=== PATIENT | male | born 1945 | race Caucasian/White ===

== ENCOUNTER 2023-10-02 21:54 | Inpatient (IN) | payer MEDICARE ==
[~2023-10-02] VITALS: Ht 185.4 cm; Wt 55.3 kg
[2023-10-02] MEDS ORDERED: CLONIDINE HCL 0.1 MG TABLET PO ONE (22:15)
[2023-10-02] MEDS ORDERED: CLONIDINE HCL 0.1 MG TABLET ONE (22:17)
[2023-10-02] MEDS ORDERED: HALOPERIDOL LACTATE 5 MG/1 ML VIAL IM ONE (23:45)
[2023-10-03] MEDS ORDERED: HALOPERIDOL LACTATE 5 MG/1 ML VIAL ONE (00:07)
[2023-10-03] MEDS ORDERED: MELA10TA (00:46)
[2023-10-03] MEDS ORDERED: QUET50TA PO (00:46)
[2023-10-03] MEDS ORDERED: BLOOD SUGAR DIAGNOSTIC 1 EACH STRIP VI ONE (01:30)
[2023-10-03] MEDS ORDERED: MAGNESIUM HYDROXIDE 30 ML LIQUID UDC PO PRN (01:30)
[2023-10-03] MEDS ORDERED: MAG HYDROX/AL HYDROX/SIMETH 30 ML LIQUID UDC PO PRN (01:30)
[2023-10-03] MEDS ORDERED: QUET100T PO (03:33)
[2023-10-03 04:23] VITALS: BP 157/81; TEMP 97.9; O2SAT 99
[2023-10-03 08:10] VITALS: BP 116/81; TEMP 98; O2SAT 98
[2023-10-03] MEDS: LORAZEPAM 0.5 MG TABLET PO PRN ×3 (08:57→18:56)
[2023-10-03] MEDS: DIVALPROEX 125 MG TABLET.DR PO SCH ×2 (14:24→17:35)
[2023-10-03 15:24] VITALS: BP 97/61; TEMP 98; O2SAT 98
[2023-10-03 20:00] VITALS: BP 122/50; TEMP 98; O2SAT 98
[2023-10-04 07:19] LABS: BASOPHILS % (AUTO) 0.5 % (0.0-2.0); EOSINOPHILS # (AUTO) 0.1 K/uL (0.0-0.7); EOSINOPHILS % (AUTO) 0.8 % (0.0-7.0); HEMATOCRIT 48.5 % (36.7-47.1); LYMPHOCYTES # (AUTO) 1.6 K/uL (0.8-4.8); LYMPHOCYTES % (AUTO) 21.8 % (20.5-51.5); MEAN CORPUSCULAR HEMOGLOBIN 29.9 uug (23.8-33.4); MEAN CORPUSCULAR HGB CONC 33 g/dL (32.5-36.3); MEAN CORPUSCULAR VOLUME 90.7 fL (73.0-96.2); MONOCYTES # (AUTO) 0.6 K/uL (0.1-1.30); MONOCYTES % (AUTO) 7.7 % (0.0-11.0); NEUTROPHILS % (AUTO) 69.2 % (38.5-71.5); PLATELET COUNT (AUTO) 180 K/uL (152-348); RED BLOOD CELL COUNT(AUTO) 5.34 MIL/uL (4.06-5.63); RED CELL DISTRIBUTION WIDTH 13.2 % (12.1-16.2); WHITE BLOOD COUNT (AUTO) 7.2 K/uL (3.6-10.2)
[2023-10-04 07:24] LABS: DIFFERENTIAL COMMENT 1
[2023-10-04 07:46] LABS: ALANINE AMINOTRANSFERASE 13 U/L (16-63); ALBUMIN 3.1 g/dL (3.4-5.0); ALKALINE PHOSPHATASE 89 U/L (50-136); ASPARTATE AMINOTRANSFERASE 13 U/L (15-37); BILIRUBIN,TOTAL 0.6 mg/dL (0.2-1.0); CALCIUM 8.9 mg/dL (8.5-10.1); CARBON DIOXIDE 28 mmol/L (21-32); CHLORIDE 106 mmol/L (98-107); GLUCOSE 102 mg/dL (74-106); GLUCOSE FASTING 102 mg/dL (70-115); POTASSIUM 4.2 mmol/L (3.5-5.1); SODIUM SERUM 142 mmol/L (136-145); TOTAL PROTEIN, SERUM 5.7 g/dL (6.4-8.2); UREA NITROGEN, BLOOD 19 mg/dL (7-18)
[2023-10-04 08:16] VITALS: BP 129/64; TEMP 97.9; O2SAT 99
[2023-10-04] MEDS: GLUCERNA SHAKE 237 ML CAN PO SCH (08:47)
[2023-10-04] MEDS: DIVALPROEX 125 MG TABLET.DR PO SCH ×2 (08:47→16:04)
[2023-10-04] MEDS: LORAZEPAM 0.5 MG TABLET PO PRN (15:08)
[2023-10-04] MEDS: ACETAMINOPHEN 325 MG TABLET PO PRN (15:52)
[2023-10-04 17:30] VITALS: BP 153/74; TEMP 97.9; O2SAT 97
[2023-10-04 20:00] VITALS: BP 109/65; TEMP 98; O2SAT 98
[2023-10-04] MEDS: TEMAZEPAM 7.5 MG CAPSULE PO PRN (21:23)
[2023-10-05 07:52] VITALS: BP 96/58; TEMP 98; O2SAT 98
[2023-10-05] MEDS: DIVALPROEX 125 MG TABLET.DR PO SCH ×2 (08:29→16:17)
[2023-10-05] MEDS: GLUCERNA SHAKE 237 ML CAN PO SCH (08:30)
[2023-10-05] MEDS: LORAZEPAM 0.5 MG TABLET PO PRN ×3 (12:27→20:34)
[2023-10-05 15:23] VITALS: BP 136/80; TEMP 98; O2SAT 99
[2023-10-05 20:00] VITALS: BP 123/77; TEMP 98.7; O2SAT 99
[2023-10-05] MEDS: TEMAZEPAM 7.5 MG CAPSULE PO PRN (23:18)
[2023-10-06] MEDS: LORAZEPAM 0.5 MG TABLET PO PRN ×4 (05:23→21:10)
[2023-10-06 07:46] VITALS: BP 114/66; TEMP 97.8; O2SAT 99
[2023-10-06] MEDS: DIVALPROEX 125 MG TABLET.DR PO SCH ×3 (08:43→16:51)
[2023-10-06] MEDS: GLUCERNA SHAKE 237 ML CAN PO SCH ×3 (08:43→16:52)
[2023-10-06] MEDS: ACETAMINOPHEN 325 MG TABLET PO PRN (16:51)
[2023-10-06 17:47] VITALS: BP 118/64; TEMP 98; O2SAT 98
[2023-10-06 20:05] VITALS: BP 162/93; TEMP 98.5; O2SAT 98
[2023-10-07 08:02] VITALS: BP 122/70; TEMP 97.6; O2SAT 98
[2023-10-07 08:23] VITALS: BP 122/70; TEMP 97.6; O2SAT 100
[2023-10-07] MEDS: DIVALPROEX 125 MG TABLET.DR PO SCH ×3 (08:25→17:42)
[2023-10-07] MEDS: LORAZEPAM 0.5 MG TABLET PO PRN ×2 (08:26→12:25)
[2023-10-07] MEDS: GLUCERNA SHAKE 237 ML CAN PO SCH ×2 (08:33→17:42)
[2023-10-07] MEDS: risperiDONE 0.25 MG TABLET PO SCH ×2 (11:05→17:42)
[2023-10-07 18:15] VITALS: BP 141/79; TEMP 97.7; O2SAT 99
[2023-10-07] MEDS: risperiDONE 0.5 MG TABLET PO SCH (20:27)
[2023-10-07] MEDS: ACETAMINOPHEN 325 MG TABLET PO PRN (20:29)
[2023-10-07] MEDS: TEMAZEPAM 7.5 MG CAPSULE PO PRN (23:16)
[2023-10-08] MEDS: DIVALPROEX 125 MG TABLET.DR PO SCH (09:00)
[2023-10-08 09:46] VITALS: BP 139/69; TEMP 97.2; O2SAT 97
[2023-10-08] MEDS: risperiDONE 0.25 MG TABLET PO SCH ×2 (09:46→17:00)
[2023-10-08] MEDS: GLUCERNA SHAKE 237 ML CAN PO SCH ×2 (09:47→17:00)
[2023-10-08 11:38] LABS: BASOPHILS # (AUTO) 0.3 K/UL (0.0-0.2); BASOPHILS % (AUTO) 3.7 % (0.0-2.0); EOSINOPHILS # (AUTO) 0.1 K/uL (0.0-0.7); EOSINOPHILS % (AUTO) 0.7 % (0.0-7.0); HEMATOCRIT 53.5 % (36.7-47.1); HEMOGLOBIN 17.8 g/dL (12.5-16.3); LYMPHOCYTES # (AUTO) 1.1 K/uL (0.8-4.8); LYMPHOCYTES % (AUTO) 16.1 % (20.5-51.5); MEAN CORPUSCULAR HEMOGLOBIN 30.2 uug (23.8-33.4); MEAN CORPUSCULAR HGB CONC 33 g/dL (32.5-36.3); MEAN CORPUSCULAR VOLUME 90.4 fL (73.0-96.2); MONOCYTES # (AUTO) 0.5 K/uL (0.1-1.30); MONOCYTES % (AUTO) 6.8 % (0.0-11.0); NEUTROPHILS % (AUTO) 72.7 % (38.5-71.5); PLATELET COUNT (AUTO) 221 K/uL (152-348); RED BLOOD CELL COUNT(AUTO) 5.91 MIL/uL (4.06-5.63); WHITE BLOOD COUNT (AUTO) 6.9 K/uL (3.6-10.2)
[2023-10-08 11:50] LABS: DIFFERENTIAL COMMENT 1
[2023-10-08 13:03] LABS: ALBUMIN 3.8 g/dL (3.4-5.0); ASPARTATE AMINOTRANSFERASE 26 U/L (15-37); BILIRUBIN,TOTAL 1.2 mg/dL (0.2-1.0); CARBON DIOXIDE 25 mmol/L (21-32); CHLORIDE 104 mmol/L (98-107); CREATININE 0.8 mg/dL (0.6-1.3); GLUCOSE 111 mg/dL (74-106); POTASSIUM 5.3 mmol/L (3.5-5.1); SODIUM SERUM 140 mmol/L (136-145); TOTAL PROTEIN, SERUM 7.1 g/dL (6.4-8.2); UREA NITROGEN, BLOOD 22 mg/dL (7-18)
[2023-10-08 13:21] LABS: ALANINE AMINOTRANSFERASE 22 U/L (16-63); ALKALINE PHOSPHATASE 136 U/L (50-136)
[2023-10-08] MEDS: DIVALPROEX SPRINKLE 125 MG CAP.SPRINK PO SCH ×2 (13:58→17:00)
[2023-10-08 16:00] VITALS: BP 147/82; TEMP 97.6; O2SAT 97
[2023-10-08 20:09] VITALS: BP 150/98; TEMP 98.1; O2SAT 98
[2023-10-08] MEDS: TEMAZEPAM 7.5 MG CAPSULE PO PRN (20:59)
[2023-10-08] MEDS: risperiDONE 0.5 MG TABLET PO SCH (20:59)
[2023-10-09 08:03] VITALS: BP 134/69; TEMP 98.2; O2SAT 98
[2023-10-09] MEDS: DIVALPROEX SPRINKLE 125 MG CAP.SPRINK PO SCH ×3 (08:53→16:56)
[2023-10-09] MEDS: risperiDONE 0.25 MG TABLET PO SCH ×2 (08:54→16:57)
[2023-10-09] MEDS: GLUCERNA SHAKE 237 ML CAN PO SCH ×2 (08:59→17:00)
[2023-10-09 15:12] VITALS: BP 149/64; TEMP 98.2; O2SAT 97
[2023-10-09 19:56] VITALS: BP 141/86; TEMP 98.1; O2SAT 99
[2023-10-09] MEDS: risperiDONE 0.5 MG TABLET PO SCH (20:13)
[2023-10-09] MEDS: TEMAZEPAM 7.5 MG CAPSULE PO SCH (20:14)
[2023-10-10 07:52] VITALS: BP 95/59; TEMP 98; O2SAT 96
[2023-10-10 08:37] LABS: BASOPHILS % (AUTO) 0.6 % (0.0-2.0); EOSINOPHILS % (AUTO) 0.6 % (0.0-7.0); HEMATOCRIT 52.4 % (36.7-47.1); HEMOGLOBIN 17.4 g/dL (12.5-16.3); LYMPHOCYTES # (AUTO) 1.6 K/uL (0.8-4.8); LYMPHOCYTES % (AUTO) 19.6 % (20.5-51.5); MEAN CORPUSCULAR HEMOGLOBIN 30.2 uug (23.8-33.4); MEAN CORPUSCULAR HGB CONC 33 g/dL (32.5-36.3); MONOCYTES # (AUTO) 0.7 K/uL (0.1-1.30); MONOCYTES % (AUTO) 8.3 % (0.0-11.0); NEUTROPHILS # (AUTO) 5.8 K/uL (1.8-8.9); NEUTROPHILS % (AUTO) 70.9 % (38.5-71.5); PLATELET COUNT (AUTO) 197 K/uL (152-348); RED BLOOD CELL COUNT(AUTO) 5.76 MIL/uL (4.06-5.63); RED CELL DISTRIBUTION WIDTH 13.3 % (12.1-16.2); WHITE BLOOD COUNT (AUTO) 8.2 K/uL (3.6-10.2)
[2023-10-10] MEDS: GLUCERNA SHAKE 237 ML CAN PO SCH ×2 (09:00→17:00)
[2023-10-10] MEDS: DIVALPROEX SPRINKLE 125 MG CAP.SPRINK PO SCH ×3 (09:00→17:00)
[2023-10-10] MEDS: risperiDONE 0.25 MG TABLET PO SCH (09:00)
[2023-10-10 09:21] LABS: ALANINE AMINOTRANSFERASE 26 U/L (16-63); ALBUMIN 3.6 g/dL (3.4-5.0); ALKALINE PHOSPHATASE 121 U/L (50-136); ASPARTATE AMINOTRANSFERASE 32 U/L (15-37); BILIRUBIN,TOTAL 0.9 mg/dL (0.2-1.0); CALCIUM 9.9 mg/dL (8.5-10.1); CARBON DIOXIDE 28 mmol/L (21-32); CHLORIDE 106 mmol/L (98-107); CREATININE 1.1 mg/dL (0.6-1.3); GLUCOSE 104 mg/dL (74-106); POTASSIUM 4.5 mmol/L (3.5-5.1); SODIUM SERUM 144 mmol/L (136-145); TOTAL PROTEIN, SERUM 6.3 g/dL (6.4-8.2); UREA NITROGEN, BLOOD 26 mg/dL (7-18)
[2023-10-10 09:31] LABS: VALPROIC ACID 14 ug/mL (50-100)
[2023-10-10 15:22] VITALS: BP 139/94; TEMP 98; O2SAT 96
[2023-10-10] MEDS: risperiDONE-M 0.5 MG TAB.RAPDIS PO SCH ×2 (17:00→21:30)
[2023-10-10] MEDS ORDERED: LORAZEPAM 2 MG/1 ML VIAL IV PRN (19:00)
[2023-10-10] MEDS ORDERED: TEMAZEPAM 15 MG CAPSULE PO PRN (19:00)
[2023-10-10] MEDS ORDERED: IV D5 1/2 NS 1000 ML 1,000 ML IV PRN (19:00)
[2023-10-10] MEDS ORDERED: MAGNESIUM HYDROXIDE 30 ML LIQUID UDC PO PRN (19:00)
[2023-10-10] MEDS ORDERED: REMEDY ESSENTIAL ZINC PASTE 113 GM TP PRN (19:00)
[2023-10-10] MEDS ORDERED: ONDANSETRON 4 MG/2 ML VIAL IV PRN (19:15)
[2023-10-10] MEDS: TEMAZEPAM 7.5 MG CAPSULE PO SCH (21:31)
[2023-10-10] MEDS ORDERED: ACET325T53 PO (23:50)
[2023-10-11] MEDS ORDERED: [UNRECOGNIZED DRUG - CODE] PO (05:25)
[2023-10-11] MEDS ORDERED: DIVA125C2 PO (05:25)
[2023-10-11] MEDS ORDERED: LORA0.5T48 PO (05:25)
== END 2023-10-10 22:19 | disposition short-term general hospital (02) | DRG 885 ==
LOC: ER 21:57 → GPS 23:58
PROVIDERS: ADMIT Psychiatry & Neurology Psychosomatic Medicine; ATTEND Nurse Practitioner Acute Care
DX: F29 Unspecified psychosis not due to a substance or known physiological condition (principal); F03.911 Unspecified dementia, unspecified severity, with agitation; G93.49 Other encephalopathy; Z68.1 Body mass index [BMI] 19.9 or less, adult; E44.0 Moderate protein-calorie malnutrition; R64 Cachexia; I10 Essential (primary) hypertension; I69.298 Other sequelae of other nontraumatic intracranial hemorrhage; F10.11 Alcohol abuse, in remission; E88.09 Other disorders of plasma-protein metabolism, not elsewhere classified; E87.5 Hyperkalemia; E86.0 Dehydration; F12.11 Cannabis abuse, in remission; Z91.81 History of falling
CPT/HCPCS: 36415; 80164; 85025; A6209; J1630

== ENCOUNTER 2023-10-10 22:51 | Inpatient (IN) | payer MEDICARE ==
[~2023-10-10] VITALS: Ht 182.9 cm; Wt 54.0 kg
[2023-10-10 23:04] VITALS: BP 139/85; TEMP 98.1; O2SAT 99
[2023-10-10] MEDS ORDERED: TEMAZEPAM 15 MG CAPSULE PO PRN (23:15)
[2023-10-10] MEDS ORDERED: IV D5 1/2 NS 1000 ML 1,000 ML IV SCH (23:15)
[2023-10-10] MEDS ORDERED: MAG HYDROX/AL HYDROX/SIMETH 30 ML LIQUID UDC PO PRN (23:15)
[2023-10-10] MEDS ORDERED: ONDANSETRON 4 MG/2 ML VIAL IV PRN (23:15)
[2023-10-10] MEDS ORDERED: ACET325T53 PO (23:50)
[2023-10-11] MEDS ORDERED: IV D5 1/2 NS 1000 ML 1,000 ML IV SCH (00:15)
[2023-10-11 04:55] VITALS: BP 131/79; TEMP 98; O2SAT 99
[2023-10-11] MEDS ORDERED: DIVA125C2 PO (05:25)
[2023-10-11] MEDS ORDERED: LORA0.5T48 PO (05:25)
[2023-10-11] MEDS ORDERED: [UNRECOGNIZED DRUG - CODE] PO (05:25)
[2023-10-11 06:40] LABS: CALCIUM 9.1 mg/dL (8.5-10.1); CARBON DIOXIDE 26 mmol/L (21-32); CHLORIDE 106 mmol/L (98-107); CREATININE 0.7 mg/dL (0.6-1.3); GLUCOSE 107 mg/dL (74-106); PHOSPHOROUS 3.1 mg/dL (2.5-4.9); POTASSIUM 3.6 mmol/L (3.5-5.1); SODIUM SERUM 140 mmol/L (136-145); UREA NITROGEN, BLOOD 23 mg/dL (7-18)
[2023-10-11] MEDS: IV D5 1/2 NS 1000 ML 1,000 ML IV PRN ×2 (06:45→09:39)
[2023-10-11 06:49] LABS: THYROID STIMULATING HORMONE 1.708 mIU/mL (0.358-3.740)
[2023-10-11] MEDS: REMEDY ESSENTIAL ZINC PASTE 113 GM TOP SCH ×2 (09:40→20:25)
[2023-10-11] MEDS ORDERED: LORAZEPAM 0.5 MG TABLET PO PRN (11:00)
[2023-10-11] MEDS ORDERED: ACETAMINOPHEN 325 MG TABLET-SA PATIENTS-PAIN ONLY PO PRN (11:00)
[2023-10-11 11:06] VITALS: BP 133/66; TEMP 97.8; O2SAT 98
[2023-10-11] MEDS ORDERED: ACETAMINOPHEN 325 MG TABLET PO PRN (11:15)
[2023-10-11 12:00] VITALS: BP 133/66; TEMP 97.8; O2SAT 98
[2023-10-11] MEDS: DIVALPROEX SPRINKLE 125 MG CAP.SPRINK PO SCH ×2 (13:23→16:24)
[2023-10-11 15:06] VITALS: BP 163/83; TEMP 98.4; O2SAT 99
[2023-10-11] MEDS: risperiDONE-M 0.5 MG TAB.RAPDIS PO SCH ×2 (16:24→20:24)
[2023-10-11 20:31] VITALS: BP 163/90; TEMP 97.8; O2SAT 99
[2023-10-12] MEDS: LORAZEPAM 2 MG/1 ML VIAL IV PRN ×2 (03:59→20:29)
[2023-10-12] MEDS: IV D5 1/2 NS 1000 ML 1,000 ML IV PRN ×2 (04:07→17:48)
[2023-10-12 04:46] VITALS: BP 138/82; TEMP 98; O2SAT 100
[2023-10-12 07:06] LABS: BASOPHILS % (AUTO) 0.4 % (0.0-2.0); EOSINOPHILS # (AUTO) 0.1 K/uL (0.0-0.7); EOSINOPHILS % (AUTO) 1.4 % (0.0-7.0); HEMATOCRIT 48.7 % (36.7-47.1); HEMOGLOBIN 16.3 g/dL (12.5-16.3); LYMPHOCYTES # (AUTO) 1.3 K/uL (0.8-4.8); LYMPHOCYTES % (AUTO) 23.6 % (20.5-51.5); MEAN CORPUSCULAR HGB CONC 33 g/dL (32.5-36.3); MEAN CORPUSCULAR VOLUME 89.9 fL (73.0-96.2); MONOCYTES # (AUTO) 0.6 K/uL (0.1-1.30); MONOCYTES % (AUTO) 10.5 % (0.0-11.0); NEUTROPHILS # (AUTO) 3.7 K/uL (1.8-8.9); NEUTROPHILS % (AUTO) 64.1 % (38.5-71.5); PLATELET COUNT (AUTO) 165 K/uL (152-348); RED BLOOD CELL COUNT(AUTO) 5.42 MIL/uL (4.06-5.63); RED CELL DISTRIBUTION WIDTH 12.8 % (12.1-16.2); WHITE BLOOD COUNT (AUTO) 5.7 K/uL (3.6-10.2)
[2023-10-12 07:12] LABS: DIFFERENTIAL COMMENT 1
[2023-10-12 07:31] LABS: CARBON DIOXIDE 27 mmol/L (21-32); CHLORIDE 108 mmol/L (98-107); POTASSIUM 3.4 mmol/L (3.5-5.1); SODIUM SERUM 144 mmol/L (136-145)
[2023-10-12 08:23] LABS: ALANINE AMINOTRANSFERASE 25 U/L (16-63); ALBUMIN 3.1 g/dL (3.4-5.0); ALKALINE PHOSPHATASE 115 U/L (50-136); ASPARTATE AMINOTRANSFERASE 17 U/L (15-37); BILIRUBIN,TOTAL 0.7 mg/dL (0.2-1.0); CALCIUM 8.8 mg/dL (8.5-10.1); CREATININE 0.8 mg/dL (0.6-1.3); GLUCOSE 100 mg/dL (74-106); MAGNESIUM 2.2 mg/dL (1.8-2.4); PHOSPHOROUS 2.8 mg/dL (2.5-4.9); TOTAL PROTEIN, SERUM 5.5 g/dL (6.4-8.2); UREA NITROGEN, BLOOD 10 mg/dL (7-18)
[2023-10-12] MEDS: risperiDONE-M 0.5 MG TAB.RAPDIS PO SCH ×4 (08:47→20:29)
[2023-10-12] MEDS: DIVALPROEX SPRINKLE 125 MG CAP.SPRINK PO SCH ×4 (08:47→17:01)
[2023-10-12] MEDS: REMEDY ESSENTIAL ZINC PASTE 113 GM TOP SCH ×2 (08:47→20:31)
[2023-10-12 11:02] VITALS: BP 137/77; TEMP 97.6; O2SAT 97
[2023-10-12] MEDS: POTASSIUM CHLORIDE 10 MEQ TAB.PRT.SR PO SCH ×2 (14:57→17:01)
[2023-10-12 16:00] VITALS: BP 147/100; TEMP 97.6; O2SAT 97
[2023-10-12 20:50] VITALS: BP 138/88; TEMP 97.5; O2SAT 97
[2023-10-13 05:00] VITALS: BP 144/89; TEMP 97.8; O2SAT 98
[2023-10-13] MEDS: IV D5 1/2 NS 1000 ML 1,000 ML IV PRN ×2 (06:37→20:09)
[2023-10-13 06:57] LABS: BASOPHILS % (AUTO) 0.5 % (0.0-2.0); EOSINOPHILS % (AUTO) 0.4 % (0.0-7.0); HEMOGLOBIN 17.8 g/dL (12.5-16.3); LYMPHOCYTES # (AUTO) 1.4 K/uL (0.8-4.8); LYMPHOCYTES % (AUTO) 16.8 % (20.5-51.5); MEAN CORPUSCULAR HEMOGLOBIN 30.1 uug (23.8-33.4); MEAN CORPUSCULAR HGB CONC 34 g/dL (32.5-36.3); MEAN CORPUSCULAR VOLUME 89.5 fL (73.0-96.2); MONOCYTES # (AUTO) 0.7 K/uL (0.1-1.30); MONOCYTES % (AUTO) 8.8 % (0.0-11.0); NEUTROPHILS # (AUTO) 6.2 K/uL (1.8-8.9); NEUTROPHILS % (AUTO) 73.5 % (38.5-71.5); PLATELET COUNT (AUTO) 178 K/uL (152-348); RED BLOOD CELL COUNT(AUTO) 5.92 MIL/uL (4.06-5.63); RED CELL DISTRIBUTION WIDTH 12.9 % (12.1-16.2); WHITE BLOOD COUNT (AUTO) 8.5 K/uL (3.6-10.2)
[2023-10-13 07:01] LABS: DIFFERENTIAL COMMENT 1
[2023-10-13 07:13] LABS: ALANINE AMINOTRANSFERASE 30 U/L (16-63); ALBUMIN 3.5 g/dL (3.4-5.0); ALKALINE PHOSPHATASE 134 U/L (50-136); ASPARTATE AMINOTRANSFERASE 18 U/L (15-37); BILIRUBIN,TOTAL 0.8 mg/dL (0.2-1.0); CALCIUM 9.9 mg/dL (8.5-10.1); CARBON DIOXIDE 28 mmol/L (21-32); CHLORIDE 106 mmol/L (98-107); CREATININE 0.7 mg/dL (0.6-1.3); GLUCOSE 118 mg/dL (74-106); MAGNESIUM 2.1 mg/dL (1.8-2.4); PHOSPHOROUS 3.4 mg/dL (2.5-4.9); POTASSIUM 4.2 mmol/L (3.5-5.1); SODIUM SERUM 142 mmol/L (136-145); TOTAL PROTEIN, SERUM 6.4 g/dL (6.4-8.2); UREA NITROGEN, BLOOD 6 mg/dL (7-18)
[2023-10-13] MEDS: DIVALPROEX SPRINKLE 125 MG CAP.SPRINK PO SCH ×3 (09:21→17:34)
[2023-10-13] MEDS: risperiDONE-M 0.5 MG TAB.RAPDIS PO SCH ×3 (09:21→20:59)
[2023-10-13] MEDS: REMEDY ESSENTIAL ZINC PASTE 113 GM TOP SCH ×2 (09:22→21:02)
[2023-10-13 11:52] VITALS: BP 104/74; TEMP 97.8; O2SAT 97
[2023-10-13] MEDS: ENSURE ENLIVE (VAN) 240 ML LIQUID PO SCH ×2 (13:27→17:34)
[2023-10-13 16:16] VITALS: BP 148/97; TEMP 97.8; O2SAT 97
[2023-10-13 20:31] VITALS: BP 148/90; TEMP 98.4; O2SAT 97
[2023-10-14 04:42] VITALS: BP 170/84; TEMP 97.7; O2SAT 96
[2023-10-14 07:27] LABS: *BILIRUBIN,URIN NEGATIVE (NEGATIVE); *CLARITY,URINE CLEAR (CLEAR); *COLOR,URINE YELLOW (YELLOW); *KETONES,URINE 2+ (NEGATIVE); *PROTEIN,URINE NEGATIVE (NEGATIVE); LEUKOCYTE ESTERASE ,URINE NEGATIVE (NEGATIVE); NITRITE, URINE NEGATIVE (NEGATIVE); UGLUCOSE NEGATIVE (NEGATIVE)
[2023-10-14 08:00] VITALS: BP 154/96; TEMP 98; O2SAT 97
[2023-10-14 08:44] LABS: *BLOOD, URINE TRACE (NEGATIVE)
[2023-10-14] MEDS: ENSURE ENLIVE (VAN) 240 ML LIQUID PO SCH ×3 (09:09→17:00)
[2023-10-14] MEDS: REMEDY ESSENTIAL ZINC PASTE 113 GM TOP SCH (09:09)
[2023-10-14] MEDS: DIVALPROEX SPRINKLE 125 MG CAP.SPRINK PO SCH ×3 (09:09→17:00)
[2023-10-14] MEDS: risperiDONE-M 0.5 MG TAB.RAPDIS PO SCH ×2 (09:09→17:00)
[2023-10-14 09:36] LABS: BACTERIA,URINE FEW /HPF (NONE SEEN); RBC,URINE 0-3 /HPF (0-3); WBC,URINE 0-3 /HPF (0-3)
[2023-10-14 11:06] VITALS: BP 93/58; TEMP 98.2; O2SAT 95
[2023-10-14] MEDS: IV D5 1/2 NS 1000 ML 1,000 ML IV PRN (12:17)
[2023-10-14 15:28] VITALS: BP 148/98; TEMP 98.4; O2SAT 92
== END 2023-10-14 19:05 | disposition hospice, home (50) | DRG 640 ==
LOC: MEDSURG3 22:51
PROVIDERS: ADMIT Nurse Practitioner Acute Care; ATTEND Internal Medicine
DX: E86.0 Dehydration (principal); G93.41 Metabolic encephalopathy; Z68.1 Body mass index [BMI] 19.9 or less, adult; F03.911 Unspecified dementia, unspecified severity, with agitation; G93.49 Other encephalopathy; R62.7 Adult failure to thrive; M15.9 Polyosteoarthritis, unspecified; R79.89 Other specified abnormal findings of blood chemistry; Z78.1 Physical restraint status; S06.30AS Unspecified focal traumatic brain injury with loss of consciousness status unknown, sequela; R40.2143 Coma scale, eyes open, spontaneous, at hospital admission; R40.2363 Coma scale, best motor response, obeys commands, at hospital admission; R40.2233 Coma scale, best verbal response, inappropriate words, at hospital admission; X58.XXXS Exposure to other specified factors, sequela; F10.11 Alcohol abuse, in remission; F12.11 Cannabis abuse, in remission; R03.0 Elevated blood-pressure reading, without diagnosis of hypertension; F07.89 Other personality and behavioral disorders due to known physiological condition
CPT/HCPCS: 36415; 70450; 71045; 83735; 84100; 84443; 85025; 93005; C1758; G0378; J2060; J7042